=== PATIENT | male | born 1940 | race Caucasian/White ===

== ENCOUNTER → 2018-04-16 | Outpatient (CLI) | payer MEDICARE, BC ==
--- NOTE | 2018-04-16 10:40 | RAD ---
EXAM: AP, lateral, odontoid views of the cervical spine DATE: 04/16/2018 9:33 AM CLINICAL HISTORY: cervical pain x 1 week, no known trauma or fall COMPARISON: None available. FINDINGS: On the lateral view, the cervical spine is imaged from the skull base to C6. Lucency is seen to the base of the dens suspicious for nondisplaced dens fracture. This can be further assessed by CT if not already performed. Vertebral body heights are preserved. Surgical fusion is seen from C4-C6. Trace anterolisthesis of C3 on C4 seen. Straightening of the normal cervical lordosis. No spondylolisthesis. Normal predental space. No significant prevertebral soft tissue swelling. IMPRESSION: 1. Lucency at the base of the dens, may represent odontoid fracture, suspect some degree of cortication, possibly chronic. This can be further assessed by CT. 2. Mild anterolisthesis of C3 and C4. Electronically signed by: Jason Washington MD (04/16/2018 10:36 AM) [facility]
== END | disposition home or self-care (01) ==
LOC: RAD 09:11
PROVIDERS: ATTEND Family Medicine
DX: M43.12 Spondylolisthesis, cervical region (principal); E78.5 Hyperlipidemia, unspecified
CPT/HCPCS: 72040

== ENCOUNTER → 2018-09-30 | Outpatient (CLI) | payer MEDICARE, BC ==
--- NOTE | 2018-09-30 13:57 | RAD ---
EXAM: Chest, 2 views. HISTORY: Shortness of air. Productive cough. COMPARISON: 07/08/2016 FINDINGS: 2 views the chest are obtained. There is stable mild elevation of the right hemidiaphragm with suspected right basilar compressive atelectasis. There is no infiltrate, pleural effusion or pneumothorax. The heart is normal in size. There is a calcified granuloma within the left lower lobe. There is cervical spinal fusion instrumentation. IMPRESSION: No acute pulmonary finding. Electronically signed by: Laurel Funes MD (09/30/2018 1:54 PM) [place] [id number]
== END | disposition home or self-care (01) ==
LOC: PMG 10:34
PROVIDERS: ATTEND Physician Assistant Medical
DX: J84.10 Pulmonary fibrosis, unspecified (principal); J98.6 Disorders of diaphragm
CPT/HCPCS: 71046

== ENCOUNTER → 2018-11-21 | Outpatient (CLI) | payer MEDICARE, BC ==
--- NOTE | 2018-11-21 17:29 | RAD ---
Cervical spine, 3 views, 11/21/2018: HISTORY: Cervical fusion Comparison is made to a study from 04/16/2018. There has been interval placement of a surgical plate anteriorly at the C3-4 level attached to those 2 vertebral bodies via 2 screws at each level. A partially radiopaque disc spacer is evident at the C3-4 level. There is prior surgical fusion of the C4-C6 vertebral bodies. C7 is not well demonstrated on the current lateral view. There is mild persistent anterolisthesis at C3-4, similar to that seen on the prior exam. There are moderate degenerative changes at scattered facet joints bilaterally. IMPRESSION: 1. Moderate multilevel degenerative change. 2. Old lower cervical anterior spinal fusion 3. Interval anterior spinal fusion and instrumentation at C3-4. 3. Mild unchanged anterolisthesis at C3-4. Electronically signed by: Bill Garsia MD (11/21/2018 5:26 PM) [facility]
== END | disposition home or self-care (01) ==
LOC: RAD 15:43
PROVIDERS: ATTEND Neurological Surgery
DX: M47.812 Spondylosis without myelopathy or radiculopathy, cervical region (principal); M43.12 Spondylolisthesis, cervical region; Z98.1 Arthrodesis status
CPT/HCPCS: 72040